=== PATIENT | male | born 1980 | race Caucasian/White ===

== ENCOUNTER 2017-05-23 14:32 | Emergency (ER) | payer MEDICAID ==
[2017-05-23 15:03] VITALS: RESP 18
[2017-05-23] MEDS ORDERED: Lidocaine 2% Inj (20ml) INFIL STA (16:05)
[2017-05-23] MEDS ORDERED: Bacitracin Ointment 30 GM TUBE TOP STA (16:05)
--- NOTE | 2017-05-23 16:06 | CP.PCM.CON ---
History of Present Illness - History of Present Illness History of Present Illness: Podiatry Consult note for Dr. Mejia 36 year old male who denies any PMHx was seen in the ED for complaint of left hallux ingrown toenail. Patient states that it has been like this for three days. Admits to applying antibiotics ointment. Currently denies any pain. States that he has had this problem before when he lived in [place] and they removed part of the nail. He denies any n/v/f/c/sob/cp. Past Patient History - Past Social History Smoking Status: Never Smoked - PSYCHIATRIC Hx Substance Use: No - SURGICAL HISTORY Hx Surgeries: No Meds Allergies/Adverse Reactions: Allergies Allergy/AdvReac Type Severity Reaction Status Date / Time No Known Allergies Allergy Verified 05/23/17 15:03 Physical Exam - Constitutional Appears: Well, Non-toxic, No Acute Distress - Extremities Exam Additional comments: Lower extremity focused exam: Vasc: DP and PT pulses palpable 2/4 b/l. Skin temperature warm to warm from proximal to distal with increase noted to left hallux. CFT < 3 seconds to all digits b/l. Neuro: Gross sensation intact b/l Ortho: Tenderness on palpation to left hallux Derm: Left hallux medial border noted to be ingrown, with dried sanginous drainage noted. no purulence noted. left hallux is edematous - Neurological Exam Neurological exam: Alert, Oriented x3 - Psychiatric Exam Psychiatric exam: Normal Affect, Normal Mood Results - Vital Signs Recent Vital Signs: Last Vital Signs Temp 98.5 F 05/23/17 15:01 Pulse 84 05/23/17 15:01 Resp 18 05/23/17 15:01 BP 115/71 05/23/17 15:01 Pulse Ox 99 05/23/17 15:01 Assessment & Plan - Assessment and Plan (Free Text) Assessment: 36 year old male with left hallux ingrown nail Plan: patient examined and evaluated discussed in detail with attending Dr. Mejia consent was obtained and placed in chart and the left hallux was blocked with 6 mL of 2% lidocaine, the digit was cleansed with betadine, then with a freer elevator the nail border was freed, using an mongolian anvil the nail was trimmed back and then removed. digit was dressed with bacitracin, 4x4, cling. patient to keep dressing c/d/i for 24 h, then pt may start epsom salt soaks daily and apply bacitrain and bandaid patient to take abx as prescribed by his pmd pt to follow up with podiatry in 1 week
[2017-05-23] MEDS ORDERED: Lidocaine 2% Inj (20ml) ONE (16:07)
[2017-05-23] MEDS ORDERED: Bacitracin 500 Units/gm Oint Foilpak UD ONE (16:07)
--- NOTE | 2017-05-23 16:29 | C.PDOC ---
History Of Present Illness 36 year old male presents to ED for evaluation of left big toe swelling, redness , and pain that developed gradually over the last few days. Pt reports having similar symptoms in the past. Pt states he has had prior surgery on that toe. Pt was seen at Dr. Deshpande's office today and was referred to ED for further evaluation. Pt admits, PMD gave him RX for antibiotic. Pt denies any obvious deformity, change in sensation, weakness, numbness, sensory vascular deficit, or fever. Time Seen by Provider: 05/23/17 15:05 Chief Complaint (Nursing): Lower Extremity Problem/Injury History Per: Patient History/Exam Limitations: no limitations Onset/Duration Of Symptoms: Days Current Symptoms Are (Timing): Still Present Past Medical History Reviewed: Historical Data, Nursing Documentation, Vital Signs Vital Signs: Last Vital Signs Temp 98.5 F 05/23/17 15:01 Pulse 84 05/23/17 15:01 Resp 18 05/23/17 15:01 BP 115/71 05/23/17 15:01 Pulse Ox 99 05/23/17 17:02 Family History: States: Unknown Family Hx - Social History Hx Alcohol Use: No Hx Substance Use: No - Immunization History Hx Tetanus Toxoid Vaccination: No Hx Influenza Vaccination: No Hx Pneumococcal Vaccination: No Review Of Systems Except As Marked, All Systems Reviewed And Found Negative. Constitutional: Negative for: Fever, Chills Cardiovascular: Negative for: Chest Pain, Palpitations Respiratory: Negative for: Cough, Shortness of Breath Gastrointestinal: Negative for: Nausea, Vomiting, Abdominal Pain Musculoskeletal: Positive for: Foot Pain (left) Skin: Negative for: Rash Neurological: Negative for: Weakness, Numbness Physical Exam - Physical Exam Appears: Well, Non-toxic, No Acute Distress Skin: Warm, Dry, Other (mild edema and erythema over the medial aspect of left great toe nail border. (+)fluctuance, with scant yellow discharge) Extremity: Normal ROM (FROM of left foot and toes), Tenderness (tednerness over the right big toe nail border), No Calf Tenderness, Capillary Refill (less than 2 seconds), No Deformity Pulses: Left Dorsalis Pedis: Normal, Right Dorsalis Pedis: Normal Neurological/Psych: Oriented x3, Normal Speech, Normal Motor, Normal Sensation, Normal Reflexes ED Course And Treatment O2 Sat by Pulse Oximetry: 99 (RA) Pulse Ox Interpretation: Normal Progress Note: On re-eval, pt is AFEBRILE, HEMODYNAMICALY STABLE, not in any apparent distress. left foot: exam c/w left big toe ingrown nail (+) flatuclance. Consult called with emergency management director, I&D performed by emergency management director at bedside. Pt was instructed by [facility] resident for further wound care and F/ U. Pt understand, stable for discharge now. Disposition Counseled Patient/Family Regarding: Diagnosis, Need For Followup, Rx Given - Disposition Referrals: [facility] [Outside] Podiatry Clinic [Outside] Disposition: HOME/ ROUTINE Disposition Time: 16:55 Condition: STABLE Additional Instructions: TAKE ANTIBIOTIC PRESCRIBED BY FOLLOW UP WITH DISTRIBUTOR SALES CONSULTANT IN 2-3 DAYS FOR RE-EVALUATION AND FURTHER TREATMENT RETURN TO ED IF ANY WORSENING OR NEW CHANGES. Instructions: Ingrown Toenail Removal Forms: [facility] (Bel[place]ian) - Clinical Impression Clinical Impression: Ingrown nail - PA / RN FIRST ASSIST / Resident Statement MD/DO has reviewed & agrees with the documentation as recorded. - Scribe Statement The provider has reviewed the documentation as recorded by the Scribe Christine Casanova All medical record entries made by the Pavanibanjali were at my direction and personally dictated by me. I have reviewed the chart and agree that the record accurately reflects my personal performance of the history, physical exam, medical decision making, and the department course for this patient. I have also personally directed, reviewed, and agree with the discharge instructions and disposition.
[2017-05-23 17:40] VITALS: BP 112/82; PULSE 87; TEMP 98.2; O2SAT 100
== END 2017-05-23 17:39 | disposition home or self-care (01) ==
LOC: C.ER 14:32
DX: L60.0 Ingrowing nail (principal)